=== PATIENT | male | born 1975 | race Caucasian/White ===

== ENCOUNTER 2018-09-14 05:44 | Day surgery (SDC) | payer OTHER ==
[2018-09-13 14:11] VITALS: BMI 19.6
[2018-09-14] MEDS ORDERED: Bupivacaine HCl 0.5%/Epinephrine 1:200,000/PF 30 ml Vial ONE (06:17)
[2018-09-14] MEDS ORDERED: Thrombin 5000 UNITS/5 ML VIAL ONE (06:17)
[2018-09-14] MEDS ORDERED: Sodium Chloride 0.9% 10 ML ONE (06:17)
[2018-09-14] MEDS ORDERED: Famotidine/PF 20 mg/2ml Vial ONE (06:33)
[2018-09-14 06:34] LABS: Hemoglobin 15.3 g/dL (14.0-18.0); Mean Corpuscular HGB CONC 33.4 g/dL (32.0-36.0); Mean Corpuscular Hemoglobin 31.5 pg (27.0-31.0); Mean Corpuscular Volume 94.2 fL (78.0-98.0); Mean Platelet Volume 7.8 fL (7.4-10.4); Platelet Count 247 thou/uL (130-400); RBC Distribution Width 11.7 % (11.5-14.5); Red Blood Cell (RBC) Count 4.86 mill/uL (4.70-6.10); White Blood Cell (WBC) Count 11.8 thou/uL (4.8-10.8)
[2018-09-14 06:40] LABS: Prothrombin Time 12.7 SEC (12.0-14.7)
[2018-09-14] MEDS ORDERED: Fentanyl 100 MCG/2 ML VIAL ONE ×3 (06:52→10:50)
--- NOTE | 2018-09-14 10:08 | OP ---
DATE OF PROCEDURE: 09/14/2018 BYPRODUCT ENGINEER: Aliya Nix PA-C PREOPERATIVE INDICATION: Treat pain and prevent neurological deterioration. PREOPERATIVE DIAGNOSES: L3-L4 lateral recess stenosis and a left-sided L3-L4 intervertebral disk herniation in the neural foramen under the L3 nerve root causing L3 radiculopathy. POSTOPERATIVE DIAGNOSES: L3-L4 lateral recess stenosis and a left-sided L3-L4 intervertebral disk herniation in the neural foramen under the L3 nerve root causing L3 radiculopathy. PROCEDURE PERFORMED: Decompressive laminectomy, medial facetectomy, foraminotomy L3-L4, and a L3-L4 far lateral microdiskectomy, operating microscope. PREOPERATIVE MEDICATIONS: Ancef 2 g IV. DRAIN NUMBER: 0. DRAIN TYPE: None. DESCRIPTION OF PROCEDURE: The patient was brought to the operating room. General endotracheal anesthesia was induced. The patient was positioned prone on gel-filled chest rolls and a lateral fluoro radiograph was used to plan our incision. The lumbar skin was sterilely prepped and draped. We opened the midline incision with a 10 blade knife and controlled bleeding with bipolar cautery. We used monopolar cautery to dissect through subcutaneous tissues to the thoracodorsal fascia. We incised the fascia in the midline and reflected the paraspinal muscles off the spinous process and lamina of L3 and the top of L4. A self-retaining retractor was placed and a lateral fluoro radiograph to confirm the level upon which we were operating. We then removed the spinous process of L3 and superior spinous process of L4 and used a Kerrison rongeur to fashion a laminectomy at L3-L4. We widened our laminectomy defect by performing medial facetectomies. We undermined the facet joints to decompress both lateral recesses. We identified the traversing and exiting L4 nerve roots and performed foraminotomies over those until a Davis ball probe could pass through the lateral recess and out the foramen without impingement. We then focused our attention on the L3 foramen on the left. A Davis ball could not pass out the foramen whatsoever. We removed a bit more bone on the left side for hemilaminectomy and we also approached on the other side of the facet joint through the foramen. Here, we used a Kerrison rongeur to widen the foramen and working from both sides, we identified the L3 nerve root. We identified soft tissue ventral to the L3 nerve root and inferior to it that was severely narrowing the foramen. Using Kerrison rongeurs, we removed multiple pieces of redundant facet capsule inferior to the nerve. Ventral to the nerve, there are loose disk fragments. These were best approached through the axilla of the nerve and the foramen sweeping laterally, removed multiple disk fragments surrounding the nerve root with a angled probe. More and more fragments were removed and with each removal, the nerve root got more and more free in the foramen. Finally, there were no more loose fragments ventrally. The nerve root could freely move in and out of the foramen superiorly and inferiorly and had no compression on it. We irrigated copiously with bacitracin irrigation. We controlled bleeding with gentle bipolar cautery. We waxed the bone edges. We infused local anesthetic in the paraspinal muscles and we closed the wound in anatomical layers. This was a clean case, no contamination. Job ID: [id number]
[2018-09-14] MEDS ORDERED: Acetaminophen/Codeine 30-300mg Tablet ONE (12:44)
[2018-09-14] MEDS ORDERED: Glycopyrrolate 0.2 MG/ML 5 ML SYRINGE ONE (14:57)
[2018-09-14] MEDS ORDERED: Dexamethasone 20 MG/5 ML VIAL ONE (14:57)
[2018-09-14] MEDS ORDERED: Ketorolac Tromethamine 30 MG/ML VIAL ONE (14:57)
[2018-09-14] MEDS ORDERED: PROPOFOL 200 MG/20 ML VIAL ONE (14:57)
[2018-09-14] MEDS ORDERED: Rocuronium Bromide 10 MG/ML (10ML VIAL) ONE (14:57)
[2018-09-14] MEDS ORDERED: Ondansetron PF 4 MG/2 ML Vial ONE (14:57)
[2018-09-14] MEDS ORDERED: Lidocaine 1% PF 5 ML VIAL ONE (14:57)
--- NOTE | 2018-09-18 09:27 | HP ---
HISTORY OF PRESENT ILLNESS: This is a 42-year-old male, who reports to our office for evaluation of low back and left leg pain. The patient states that he woke up about three weeks ago with terrible pain, burning, numbness in his left back, hip, and down the leg onto his feet. The patient states that he does not have any pain below the knee. No knee pain, but numbness. The patient describes pain along the lateral side of the anterior thigh. The patient has seen pain management with who has done two injections without any benefit. He has been taking the pain medications, muscle relaxers, and only thing that has helped a small amount, is a Medrol Dosepak that he got in the ER past weekend. REVIEW OF SYSTEMS: A 10-point review of systems has been completed and is negative other than stated in the above HPI. PAST MEDICAL HISTORY: Denies. PAST SURGICAL HISTORY: Denies. FAMILY HISTORY: Father is alive. Mother is alive. SOCIAL HISTORY: The patient denies smoking. He uses Dip tobacco. MEDICATIONS: 1. Naproxen. 2. Methylprednisone. 3. Metaxalone. ALLERGIES: NO KNOWN DRUG ALLERGIES. PHYSICAL EXAMINATION: HEENT: Normal. Head is normocephalic and atraumatic. Pupils are equal, round, and reactive to light. Extraocular movements are intact. NECK: Normal. Soft, supple. No masses are noted. Range of motion is intact. NEUROLOGIC: Awake, alert, and oriented x3. Memory, attention, fund of knowledge, and language are all normal. CRANIAL NERVES: Cranial nerves are grossly intact. EXTREMITIES: Upper extremities, normal, does not disclose any focal motor weakness or deep tendon reflex asymmetry. Sensation equal bilaterally. Lower extremities, normal, does not disclose any focal motor weakness or deep tendon reflex asymmetry, 5/5 bilateral strength, hip flexion, knee flexion, dorsiflexion, plantar flexion, EHL 4+/5, knee flexion. No ankle clonus bilaterally. No Babinski. Positive single leg raise on the right and right greater trochanteric bursa tenderness. Gait and station are normal. DIAGNOSTIC DATA: MRI shows L4-L5 herniated disk, lateral recess stenosis, herniation of disk in the L3 root canal, severe compression of the root. There is foraminal stenosis throughout L5 on the left, but not severe. Flexion-extension x-rays stable. Left hip MRI looks normal. ASSESSMENT AND PLAN: Lumbar radiculopathy. Dr. Foster has offered surgery. Informed consent. We discussed the indications, risks, benefits, alternatives, and expected results from surgery. The risks discussed include, but are not limited to, bleeding, infection, CSF leak, nerve damage, weakness, incontinence, cauda equina injury, arachnoiditis, paralysis, ventilator dependence, wheelchair dependence, loss of vision, cardiopulmonary complications of anesthesia or . Long-term complications discussed include, but were not limited to spinal instability and the need for further surgery. The patient states that he understands the risks and is willing to proceed. Job ID: [id number]
== END 2018-09-14 14:15 | disposition home or self-care (01) ==
LOC: SDC 05:44
PROVIDERS: ATTEND Neurological Surgery
PROC: 01NB0ZZ Release Lumbar Nerve, Open Approach (ICD-10-PCS; principal; 2018-09-14)
DX: M51.16 Intervertebral disc disorders with radiculopathy, lumbar region (principal); M48.061 Spinal stenosis, lumbar region without neurogenic claudication; Z79.899 Other long term (current) drug therapy
CPT/HCPCS: 76000; 85027; 85610; 85730; J0131; J0670; J1100; J1885; J2001; J2405; J2704; J3010; J3370; J3490; S0028